=== PATIENT | male | born 1995 | race Caucasian/White ===

== ENCOUNTER 2020-07-03 15:11 | Emergency (ER) | payer BC, SELFPAY ==
--- NOTE | ~2020-07-03 | XR_ITS ---
EXAMINATION: XR foot RT min 3V EXAM DATE: 07/03/2020 15:49 INDICATION: Injury rt great toe top of RT foot. Kicked a cinderblock. Initial encounter. TECHNIQUE: Right foot dorsoplantar, lateral and oblique projections obtained and reviewed. Compariso n is made to prior examination from 03/26/2011. FINDINGS: Right metatarsal bones unremarkable. There are no acute fractures or dislocations identifi ed. There is no subcutaneous gas. The soft tissue is unremarkable. There are no radiopaque foreig n bodies. IMPRESSION: 1. XR foot RT min 3V exam without acute osseous findings. Reviewed, dictated and finalized at location A.
[2020-07-03 15:30] VITALS: BP 162/89; PULSE 106; RESP 16; TEMP 36.3; O2SAT 97
--- NOTE | 2020-07-03 16:03 | ED.GENADULT ---
HPI - General Adult General Chief complaint: Extremity Injury, Lower Stated complaint: right foot injury Time Seen by Provider: 07/03/20 15:41 Source: patient History of Present Illness HPI narrative: Patient is a 25 y/o male complaining of right foot pain since 2 hours ago. He states that he kicked a cinderblock accidentally while working in a garden. He describes his pain as sharp and rates it as 6-7/10. Weight bearing aggravates his pain. Related Data Allergies Allergy/AdvReac Type Severity Reaction Status Date / Time No Known Allergies Allergy Verified 07/03/20 15:35 Review of Systems Constitutional: Constitutional: Denies chills, Denies fever(s), Denies headache(s) and Denies weakness Eyes: Eyes: Denies blurry vision ENT: Denies headache(s) and Denies neck pain Cardiovascular: Cardiovascular: Denies chest pain and Denies dyspnea Respiratory: Respiratory: Denies cough and Denies dyspnea Gastrointestinal: Gastrointestinal: Denies abdominal pain, Denies diarrhea, Denies nausea and Denies vomiting Genitourinary: Genitourinary: Denies hematuria and Denies dysuria Musculoskeletal: Musculoskeletal: Denies back pain, Denies neck pain and Reports other (right foot pain) Neurologic: Denies headache(s) and Denies weakness REPLACED BY [facility] Family History Family History Mother Diabetes mellitus Patient's mother is in good health Social History Social History Smoking status: Never smoker Alcohol intake: never Gender identity (if verbalized by the patient): Male Exam Const: General: no acute distress and well developed Orientation/consciousness: oriented to person, oriented to place, oriented to time and patient oriented x3 HENMT: Head: normocephalic Ears: external ears normal General nose exam: Normal external nose present Eyes: General: appearance normal, both eyes and all related structures Conjunctivae: conjunctivae normal Skin: General skin exam: normal color and turgor normal Neuro: General: oriented to person, oriented to place, oriented to time and patient oriented x3 Cognition (Neuro): normal cognition Extrem: General: normal to inspection, full ROM and no pedal edema Right lower extremity: foot Details: tenderness Psych: Appearance: grossly normal Mental Status: mental status grossly normal Affect: normal affect Course Vital Signs Vital signs: Vital Signs Temperature 36.3 C L 07/03/20 15:30 Pulse Rate 106 H 07/03/20 15:30 Respiratory Rate 16 07/03/20 15:30 Blood Pressure 162/89 H 07/03/20 15:30 Pulse Oximetry 97 07/03/20 15:30 Temperature 36.3 C L 07/03/20 15:30 Pulse Rate 72 07/03/20 16:25 Respiratory Rate 15 07/03/20 16:25 Blood Pressure 118/75 07/03/20 16:25 Pulse Oximetry 100 07/03/20 16:25 Medical Decision Making Vital Signs Vital Signs: Vital Signs Temperature 36.3 C L 07/03/20 15:30 Pulse Rate 106 H 07/03/20 15:30 Respiratory Rate 16 07/03/20 15:30 Blood Pressure 162/89 H 07/03/20 15:30 Pulse Oximetry 97 07/03/20 15:30 Temperature 36.3 C L 07/03/20 15:30 Pulse Rate 72 07/03/20 16:25 Respiratory Rate 15 07/03/20 16:25 Blood Pressure 118/75 07/03/20 16:25 Pulse Oximetry 100 07/03/20 16:25 Discharge Plan Discharge Clinical Impression: Contusion of foot, right Qualifiers: Encounter type: initial encounter Qualified Code(s): S90.31XA - Contusion of right foot, initial encounter Patient Disposition: Home, Self-Care Condition: Stable Instructions: Antibiotic Form, Foot Contusion (ED) Prescriptions: No Action montelukast [Singulair] 10 mg tablet 10 mg PO DAILY Qty: 90 RF: 3 Follow-up/Referrals: Jeremiah Torrez MD [Primary Care Provider] - Stand Alone Forms: Work/School Release IP
--- NOTE | 2020-07-03 16:04 | PC.NURSE ---
Verbal order for post op shoe at this time per edp katheryn.
[2020-07-03 16:25] VITALS: BP 118/75; PULSE 72; RESP 15; O2SAT 100
== END 2020-07-03 16:25 | disposition home or self-care (01) ==
PROVIDERS: Emergency Provider Emergency Medicine; PCP Family Medicine
DX: S90.31XA Contusion of right foot, initial encounter (principal); W22.09XA Striking against other stationary object, initial encounter
CPT/HCPCS: 73630; 99283

== ENCOUNTER 2020-07-11 14:23 | Outpatient (CLI) | payer BC, SELFPAY ==
--- NOTE | ~2020-07-11 | XR_ITS ---
XR ankle RT 2V DATE: 07/11/2020 14:43 INDICATION: Tripped. Right ankle and foot pain. TECHNIQUE: AP and lateral views COMPARISON: None FINDINGS: No fracture or dislocation of the ankle or disruption of the ankle mortise. No periosteal r eaction or bone destruction. IMPRESSION: Negative Reviewed, dictated and finalized at location B. IMPRESSION: Negative
--- NOTE | ~2020-07-11 | XR_ITS ---
XR foot RT min 3V DATE: 07/11/2020 14:43 INDICATION: Right ankle and foot pain following tripping injury TECHNIQUE: 4 views COMPARISON: None FINDINGS: Os tibiale externum. No fracture or dislocation, periosteal reaction or bone destruction. IMPRESSION: No significant abnormality Reviewed, dictated and finalized at location B. IMPRESSION: No significant abnormality
== END 2020-07-11 14:24 | disposition home or self-care (01) ==
LOC: ANHIMG 14:27
PROVIDERS: PCP Family Medicine; Visit Provider Nurse Practitioner Family
DX: M25.571 Pain in right ankle and joints of right foot (principal); M79.671 Pain in right foot
CPT/HCPCS: 73600; 73630

== ENCOUNTER 2021-04-16 12:48 | Outpatient (CLI) | payer BC, SELFPAY ==
[2021-04-16 13:37] LABS: Basophils Absolute Auto 0.1 K/mm3 (0.0-0.1); Basophils Percent Auto 0.8 % (0.2-1.2); Eosinophils Absolute Auto 0.4 K/mm3 (0-0.3); Hematocrit 47.3 % (42.0-52.0); Hemoglobin 15.8 g/dL (14.0-18.0); Immature Granulocyte Absolute 0.01 K/mm3 (0.00-0.031); Immature Granulocyte Percent A 0.2 % (0-0.5); Lymphocytes Absolute Auto 1.71 K/mm3 (0.9-3.2); Lymphocytes Percent Auto 27.8 % (18.3-44.2); Mean Corpuscular HGB Conc 33.4 g/dl (32-36); Mean Corpuscular Volume 86.8 fl (80-100); Mean Platelet Volume 10.7 fl (7.4-10.4); Monocytes Absolute Auto 0.7 K/mm3 (0.1-0.6); Monocytes Percent Auto 10.6 % (2.6-8.5); Neutrophils Absolute Auto 3.4 K/mm3 (1.3-6.7); Neutrophils Percent Auto 54.6 % (45.5-73.1); Platelet Count Result 253 k/mm3 (150-375); Red Blood Count 5.45 M/mm3 (4.6-6.20); Red Cell Distribution Width 12.3 % (11.5-14.5); White Blood Count 6.2 K/mm3 (4.5-10.0)
[2021-04-16 13:49] LABS: Alanine Aminotransferase 28 U/L (4-50); Albumin Level 4.5 g/dL (3.5-5.1); Alkaline Phosphatase 53 U/L (38-126); Anion Gap 5 mmol/L (8-16); Aspartate Amino Transferase 29 U/L (17-59); Bilirubin,Total 0.6 mg/dL (0.2-1.3); Blood Urea Nitrogen 11 mg/dL (9-20); Calcium 9.1 mg/dL (8.4-10.2); Carbon Dioxide 30 mmol/L (22-30); Chloride 104 mmol/L (98-107); Cholesterol 236 mg/dL (0-200); Estimated Glomerular Filt Rate > 60; Glucose 99 mg/dL (65-110); HDL Direct 43 mg/dL; Potassium 4.3 mmol/L (3.4-5.0); Sodium 139 mmol/L (137-145); Triglycerides 173 mg/dL (<150)
[2021-04-16 13:53] LABS: Hemoglobin A1C 5.8 % (<5.7)
[2021-04-16 14:00] LABS: LDL Cholesterol Direct 161 mg/dL
[2021-04-16 14:12] LABS: Add Urine Microscopic? NO; Appearance Urine Clear (Clear); Bilirubin Urine Negative (Negative); Blood Urine Negative (Negative); Color Urine Yellow (Yellow); Glucose Urine UA Negative (Negative); Ketones Urine Negative (Negative); Leukocyte Esterase Ur Negative LEU/UL (NEGATIVE); Nitrate Urine Negative (Negative); Protein Urine Negative (Negative); Specific Grav Ur 1.025 (1.001-1.035); Urobilinogen Urine Negative mg/dL (<2.0)
[2021-04-16 15:11] LABS: Folic Acid 11.6 ng/mL (2.76->20)
== END 2021-04-16 12:49 | disposition home or self-care (01) ==
PROVIDERS: PCP Family Medicine; Visit Provider Nurse Practitioner Family
DX: Z51.81 Encounter for therapeutic drug level monitoring (principal); Z68.41 Body mass index [BMI] 40.0-44.9, adult; Z00.00 Encounter for general adult medical examination without abnormal findings; Z79.899 Other long term (current) drug therapy
CPT/HCPCS: 36415; 80053; 80061; 81003; 82607; 82746; 83036; 84443; 85025

== ENCOUNTER 2022-09-23 09:18 | Outpatient (CLI) | payer BC, SELFPAY ==
[2022-09-23 09:38] LABS: Basophils Percent Auto 0.6 % (0.2-1.2); Eosinophils Absolute Auto 0.3 K/mm3 (0-0.3); Eosinophils Percent Auto 5.4 % (0-4.4); Hematocrit 45.6 % (42.0-52.0); Hemoglobin 15.1 g/dL (14.0-18.0); Immature Granulocyte Absolute 0.01 K/mm3 (0.00-0.031); Immature Granulocyte Percent A 0.2 % (0-0.5); Lymphocytes Absolute Auto 1.39 K/mm3 (0.9-3.2); Lymphocytes Percent Auto 22.2 % (18.3-44.2); Mean Corpuscular HGB Conc 33.1 g/dl (32-36); Mean Corpuscular Hemoglobin 28.3 pg (26-34); Mean Corpuscular Volume 85.6 fl (80-100); Monocytes Absolute Auto 0.7 K/mm3 (0.1-0.6); Monocytes Percent Auto 10.5 % (2.6-8.5); Neutrophils Absolute Auto 3.8 K/mm3 (1.3-6.7); Neutrophils Percent Auto 61.1 % (45.5-73.1); Platelet Count Result 260 k/mm3 (150-375); Red Blood Count 5.33 M/mm3 (4.6-6.20); Red Cell Distribution Width 12.4 % (11.5-14.5); White Blood Count 6.3 K/mm3 (4.5-10.0)
[2022-09-23 09:53] LABS: Alanine Aminotransferase 34 U/L (6-50); Albumin Level 4.4 g/dL (3.5-5.1); Alkaline Phosphatase 52 U/L (38-126); Anion Gap 7 mmol/L (8-16); Aspartate Amino Transferase 30 U/L (17-59); Bilirubin,Total 0.8 mg/dL (0.2-1.3); Blood Urea Nitrogen 13 mg/dL (9-20); Calcium 9.1 mg/dL (8.4-10.2); Carbon Dioxide 30 mmol/L (22-30); Chloride 102 mmol/L (98-107); Cholesterol 258 mg/dL (0-200); Estimated Glomerular Filt Rate > 60; Glucose 115 mg/dL (65-110); HDL Direct 41 mg/dL; Potassium 3.9 mmol/L (3.4-5.0); Sodium 139 mmol/L (137-145); Triglycerides 214 mg/dL (<150)
[2022-09-23 10:05] LABS: LDL Cholesterol Direct 173 mg/dL
== END 2022-09-23 09:19 | disposition home or self-care (01) ==
PROVIDERS: PCP Family Medicine; Visit Provider Family Medicine
DX: G47.33 Obstructive sleep apnea (adult) (pediatric) (principal); E78.2 Mixed hyperlipidemia; R73.01 Impaired fasting glucose
CPT/HCPCS: 36415; 80053; 80061; 83036; 84443; 85025

== ENCOUNTER 2022-11-19 14:23 | Outpatient (CLI) | payer BC, SELFPAY ==
[2022-11-19 15:44] LABS: Appearance Urine Clear (Clear); Bilirubin Urine Negative (Negative); Blood Urine Negative (Negative); Color Urine Yellow (Yellow); Glucose Urine UA 1+ mg/dL (Negative); Ketones Urine Trace mg/dL (Negative); Leukocyte Esterase Ur Negative LEU/UL (NEGATIVE); Nitrate Urine Negative (Negative); Protein Urine Negative (Negative); Specific Grav Ur 1.027 (1.001-1.035); Urobilinogen Urine 0.2 mg/dL (<2.0); pH Urine 6.5 (5.0-9.0)
[2022-11-19 15:54] LABS: Add Urine Microscopic? NO
== END 2022-11-19 14:24 | disposition home or self-care (01) ==
PROVIDERS: PCP Family Medicine; Visit Provider Family Medicine
DX: R73.01 Impaired fasting glucose (principal)
CPT/HCPCS: 81003

== ENCOUNTER 2023-01-24 13:27 | Emergency (ER) | payer BC, SELFPAY ==
[2023-01-24 13:36] VITALS: BP 140/70; PULSE 104; RESP 18; TEMP 36.7; O2SAT 96
[2023-01-24 14:23] VITALS: O2SAT 98
--- NOTE | 2023-01-24 15:22 | ED.URI ---
HPI - URI/Sore Throat General Chief Complaint: Upper Respiratory Infection Stated Complaint: COVID-19 Time Seen by Provider: 01/24/23 14:53 Source: patient, RN notes reviewed and old records reviewed Mode of arrival: ambulatory Limitations: no limitations History of Present Illness HPI Narrative: This is a 27 year old male who presents for evaluation of COVID symptoms. PAtient states he developed symptoms of covid on Thursday. He reports cough and congestion. He reports he tested positive for covid on Thursday. He is here because he has hoarseness and he reports worsening cough. He denies fever, chills, shortness of breath. He feels like there is phlegm in the back of his throat. Related Data Home Medications Medication Instructions Recorded Confirmed loratadine 10 mg disintegrating 10 mg PO DAILY 07/11/20 07/23/22 tablet (Claritin RediTabs) fluticasone propionate 50 1 spray intranasal BID 01/09/21 07/23/22 mcg/actuation nasal spray,suspension (Flonase Allergy Relief) Allergies Allergy/AdvReac Type Severity Reaction Status Date / Time No Known Allergies Allergy Verified 01/24/23 14:25 Review of Systems Constitutional: Constitutional: Denies weakness ENT: Reports nasal congestion Cardiovascular: Cardiovascular: Denies syncope, Denies rapid heart rate, Denies irregular heart rhythm, Denies leg edema and Denies dyspnea Respiratory: Respiratory: Denies chest congestion, Reports cough, Denies hemoptysis, Denies excessive phlegm production and Denies dyspnea Gastrointestinal: Gastrointestinal: Denies abdominal pain, Denies hematochezia, Denies diarrhea and Denies vomiting Genitourinary: Genitourinary: Denies hematuria, Denies dysuria, Denies penile discharge and Denies testicular pain Musculoskeletal: Musculoskeletal: Denies joint swelling, Denies loss of height and Denies muscle weakness Neurologic: Denies syncope, Denies focal weakness and Denies weakness PMFSH Past Medical History Medical History Abnormal fasting glucose (04/16/21) fasting glucose 99 with hemoglobin A1c 5.8 on 04/16/2021. fasting glucose 115 with hemoglobin A1c 6.0 on 10/13/2022. Acute right ankle pain BMI 38.0-38.9,adult Body mass index (BMI) 40.0-44.9, adult (12/06/18) Encounter for wellness examination Glucosuria 1+ glucose in the urine 11/19/2022. Left ankle pain (~2022) pain medial aspect left ankle from work activities. Mixed hyperlipidemia (04/16/21) total cholesterol 236, triglycerides 173, HDL 43, LDL 161 on 04/16/2021. Cholesterol 258, triglycerides 214, HDL 41, LDL 173 on 09/23/2022. Morbid obesity with BMI of 40.0-44.9, adult Nausea and vomiting Obesity (BMI 30-39.9) Right foot pain Skin tag Family History Family History Mother Diabetes mellitus Patient's mother is in good health Social History Social History Smoking status: Never smoker Alcohol intake: never Substance use: never Substance use type: does not use Current Housing: Decline to Answer Concerned About Future Housing: Decline to Answer Difficulty Paying Gas/Electric Bills: Decline to Answer Difficulty Paying for Meds: Decline to Answer Currently Unemployed: Decline to Answer Education: Decline to Answer Difficulty w/ Childcare or Family Care: Decline to Answer Gender identity (if verbalized by the patient): Male Exam Const: General: no acute distress and alert Nutritional Appearance: well nourished Orientation/consciousness: patient oriented x3 HENMT: Head: normal to inspection Ears: external ears normal and TM's normal bilaterally Face and sinus: normal facial exam Mouth: Yes Normal oral and palatal mucosa present, Yes lip normal and Yes moist mucous membranes Throat: posterior oropharynx normal and uvula midline Eyes: EOM: EOMs intact bilaterally
[2023-01-24 15:35] VITALS: RESP 16
== END 2023-01-24 15:35 | disposition home or self-care (01) ==
PROVIDERS: Emergency Provider General Practice; PCP Family Medicine
DX: U07.1 COVID-19 (principal); J04.0 Acute laryngitis; E78.2 Mixed hyperlipidemia; E66.01 Morbid (severe) obesity due to excess calories; Z68.41 Body mass index [BMI] 40.0-44.9, adult
CPT/HCPCS: 99283

== ENCOUNTER 2023-06-03 12:29 | Emergency (ER) | payer BC, SELFPAY ==
[2023-06-03] VITALS (23 sets, daily range): BP systolic 142–157; BP diastolic 74–99; PULSE 83–106; RESP 11–24; TEMP 36.2; O2SAT 90–98
--- NOTE | 2023-06-03 12:32 | ED.NAVMDI ---
HPI - Nausea/Vomiting/Diarrhea General Chief complaint: Nausea/Vomiting/Diarrhea Stated complaint: N/V/IRVIN Time Seen by Provider: 06/03/23 12:32 Source: patient Mode of arrival: ambulatory Limitations: no limitations History of Present Illness HPI Narrative: Rob is a 27-year-old male patient presenting to the emergency room today with complaints of nausea, vomiting, and headache. Reports that his symptoms started at 0800 this morning. She is very pale upon evaluation. Denies any abdominal pain. Last bowel movement was yesterday and normal for the patient. Related Data Home Medications Medication Instructions Recorded Confirmed loratadine 10 mg disintegrating 10 mg PO DAILY 07/11/20 07/23/22 tablet (Claritin RediTabs) fluticasone propionate 50 1 spray intranasal BID 01/09/21 07/23/22 mcg/actuation nasal spray,suspension (Flonase Allergy Relief) Allergies Allergy/AdvReac Type Severity Reaction Status Date / Time No Known Allergies Allergy Verified 06/03/23 13:16 Review of Systems Review of Systems: Pertinent positives per HPI. Patient denies any fever, chills, rash, visual changes, dizziness, cough, runny nose, sore throat, shortness of breath, chest pain, palpitations,diarrhea, constipation, abdominal pain, or any urinary issues. [facility] Past Medical History Medical History Abnormal fasting glucose (04/16/21) fasting glucose 99 with hemoglobin A1c 5.8 on 04/16/2021. fasting glucose 115 with hemoglobin A1c 6.0 on 10/13/2022. Acute right ankle pain BMI 38.0-38.9,adult Body mass index (BMI) 40.0-44.9, adult (12/06/18) Encounter for wellness examination Glucosuria 1+ glucose in the urine 11/19/2022. Left ankle pain (~2022) pain medial aspect left ankle from work activities. Mixed hyperlipidemia (04/16/21) total cholesterol 236, triglycerides 173, HDL 43, LDL 161 on 04/16/2021. Cholesterol 258, triglycerides 214, HDL 41, LDL 173 on 09/23/2022. Morbid obesity with BMI of 40.0-44.9, adult Nausea and vomiting Obesity (BMI 30-39.9) Right foot pain Skin tag Family History Family History Mother Diabetes mellitus Patient's mother is in good health Social History Social History Smoking status: Never smoker Alcohol intake: never Substance use: never Substance use type: does not use Current Housing: Decline to Answer Concerned About Future Housing: Decline to Answer Difficulty Paying Gas/Electric Bills: Decline to Answer Difficulty Paying for Meds: Decline to Answer Currently Unemployed: Decline to Answer Education: Decline to Answer Difficulty w/ Childcare or Family Care: Decline to Answer Gender identity (if verbalized by the patient): Male Comments At the time of my signature, I reviewed and agree with the nursing past medical, surgical, social, and family history. There is no relevant family history pertinent to the patient complaint. Exam Narrative: General: Well-developed, well nourished, pale and diaphoretic Head: Normocephalic, atraumatic. Cardio: Regular rate and rhythm, s1 and s2 normal, no murmur appreciated. Resp: Clear to auscultation bilaterally, no rhonchi, rales, wheezing or rubs. Abdomen: Soft, pliable, bowel sounds present in all quadrants, non-tender to palpation, no organomegly, no CVAT tenderness. Course Course Emergency Course: Portions of this record may have been created with voice recognition software. Vital Signs Vital signs: Vital Signs Temperature 36.2 C L 06/03/23 12:36 Pulse Rate 83 06/03/23 12:36 Respiratory Rate 18 06/03/23 12:36 Blood Pressure 142/97 H 06/03/23 12:36 Pulse Oximetry 98 06/03/23 12:36 Oxygen Delivery Room Air 06/03/23 12:36 Temperature 36.2 C L 06/03/23 12:36 Pulse Rate 93 06/03/23 13:17 Respirator
[2023-06-03] MEDS: SODIUM CHLORIDE 0.9% IV 1,000 ML 999 ML IV CONT ×2 (12:46→14:24)
[2023-06-03] MEDS: ONDANSETRON INJ 4 MG/2 ML VIAL IV PUSH (12:47)
[2023-06-03 13:25] LABS: Basophils Percent Auto 0.3 % (0.2-1.2); Eosinophils Percent Auto 0.2 % (0-4.4); Hemoglobin 15.3 g/dL (14.0-18.0); Immature Granulocyte Absolute 0.05 K/mm3 (0.00-0.031); Immature Granulocyte Percent A 0.4 % (0-0.5); Lymphocytes Absolute Auto 0.77 K/mm3 (0.9-3.2); Lymphocytes Percent Auto 6.3 % (18.3-44.2); Mean Corpuscular HGB Conc 32.6 g/dl (32-36); Mean Corpuscular Hemoglobin 28.3 pg (26-34); Mean Corpuscular Volume 86.9 fl (80-100); Mean Platelet Volume 10.5 fl (7.4-10.4); Monocytes Absolute Auto 0.4 K/mm3 (0.1-0.6); Monocytes Percent Auto 3.1 % (2.6-8.5); Neutrophils Absolute Auto 10.9 K/mm3 (1.3-6.7); Neutrophils Percent Auto 89.7 % (45.5-73.1); Platelet Count Result 242 k/mm3 (150-375); Red Blood Count 5.41 M/mm3 (4.6-6.20); Red Cell Distribution Width 12.7 % (11.5-14.5); White Blood Count 12.2 K/mm3 (4.5-10.0)
[2023-06-03 13:41] LABS: Alanine Aminotransferase 30 U/L (6-50); Albumin Level 4.5 g/dL (3.5-5.1); Alkaline Phosphatase 60 U/L (38-126); Anion Gap 8 mmol/L (4-12); Aspartate Amino Transferase 27 U/L (17-59); Bilirubin,Total 0.4 mg/dL (0.2-1.3); Blood Urea Nitrogen 12 mg/dL (9-20); Calcium 9.1 mg/dL (8.4-10.2); Carbon Dioxide 27 mmol/L (22-30); Chloride 105 mmol/L (98-107); Estimated CRCL calculation 177 ml/min; Estimated Glomerular Filt Rate > 60; Glucose 191 mg/dL (65-110); Lipase 107 U/L (23-300); Potassium 3.7 mmol/L (3.4-5.0); Sodium 140 mmol/L (137-145)
[2023-06-03 14:03] LABS: Influenza A QL RT-PCR Negative (Negative); Influenza B QL RT-PCR Negative (Negative); RSV RNA, RT-PCR Negative (Negative); SARS-CoV-2 RNA PCR Negative (Negative)
[2023-06-03 14:25] LABS: Appearance Urine Turbid (Clear); Bacteria Urine None Seen /hpf; Bilirubin Urine Negative (Negative); Blood Urine Negative (Negative); Color Urine Yellow (Yellow); Glucose Urine UA Trace mg/dL (Negative); Ketones Urine Negative (Negative); Leukocyte Esterase Ur Negative LEU/UL (Negative); Nitrate Urine Negative (Negative); Non Pathogenic Casts 0-2; Protein Urine Trace mg/dL (Negative); RBC Urine 0-2 /hpf (0-2); Specific Grav Ur 1.023 (1.001-1.035); Squamous Epithelial Cell Urine None Seen /hpf (Few); Urobilinogen Urine 0.2 mg/dL (<2.0); WBC Urine 0-5 /hpf (0-3)
[2023-06-03 14:27] LABS: Add Urine Microscopic? YES
[2023-06-03] MEDS: ACETAMINOPHEN 500 MG TABLET 1000 MG PO (14:46)
== END 2023-06-03 16:16 | disposition home or self-care (01) ==
PROVIDERS: Emergency Provider Nurse Practitioner Family; PCP Family Medicine
DX: R11.2 Nausea with vomiting, unspecified (principal); Z20.822 Contact with and (suspected) exposure to COVID-19; E78.2 Mixed hyperlipidemia; E66.01 Morbid (severe) obesity due to excess calories; Z68.41 Body mass index [BMI] 40.0-44.9, adult
CPT/HCPCS: 36415; 80053; 81001; 83690; 85025; 87637; 96361; 96374; 99284; A9270; J2405; J7030

== ENCOUNTER 2023-12-08 15:01 | Emergency (ER) | payer BC, SELFPAY ==
[2023-12-08 15:08] VITALS: BP 150/108; PULSE 93; RESP 18; TEMP 36.6; O2SAT 97
[2023-12-08 15:59] LABS: Basophils Percent Auto 0.4 % (0.2-1.2); Eosinophils Percent Auto 0.2 % (0-4.4); Hematocrit 46.6 % (42.0-52.0); Hemoglobin 15.5 g/dL (14.0-18.0); Immature Granulocyte Absolute 0.03 K/mm3 (0.00-0.031); Immature Granulocyte Percent A 0.3 % (0-0.5); Lymphocytes Absolute Auto 0.61 K/mm3 (0.9-3.2); Lymphocytes Percent Auto 5.4 % (18.3-44.2); Mean Corpuscular HGB Conc 33.3 g/dl (32-36); Mean Corpuscular Hemoglobin 29.1 pg (26-34); Mean Corpuscular Volume 87.4 fl (80-100); Mean Platelet Volume 10.3 fl (7.4-10.4); Monocytes Absolute Auto 0.3 K/mm3 (0.1-0.6); Monocytes Percent Auto 2.7 % (2.6-8.5); Neutrophils Absolute Auto 10.3 K/mm3 (1.3-6.7); Platelet Count Result 254 k/mm3 (150-375); Red Blood Count 5.33 M/mm3 (4.6-6.20); Red Cell Distribution Width 12.6 % (11.5-14.5); White Blood Count 11.3 K/mm3 (4.5-10.0)
[2023-12-08 16:07] LABS: Add Urine Microscopic? YES; Appearance Urine Cloudy (Clear); Bacteria Urine None Seen /hpf; Bilirubin Urine Negative (Negative); Blood Urine Negative (Negative); Color Urine Yellow (Yellow); Glucose Urine UA Negative (Negative); Ketones Urine Negative (Negative); Leukocyte Esterase Ur Negative LEU/UL (Negative); Nitrate Urine Negative (Negative); Non Pathogenic Casts 0-2; Protein Urine 1+ mg/dL (Negative); RBC Urine 0-2 /hpf (0-2); Specific Grav Ur 1.025 (1.001-1.035); Squamous Epithelial Cell Urine None Seen /hpf (Few); Urobilinogen Urine 0.2 mg/dL (<2.0); WBC Urine 0-5 /hpf (0-3)
[2023-12-08 16:09] LABS: Alanine Aminotransferase 36 U/L (6-50); Albumin Level 4.8 g/dL (3.5-5.1); Alkaline Phosphatase 68 U/L (38-126); Anion Gap 8 mmol/L (4-12); Aspartate Amino Transferase 31 U/L (17-59); Bilirubin,Total 0.7 mg/dL (0.2-1.3); Blood Urea Nitrogen 12 mg/dL (9-20); Calcium 9.8 mg/dL (8.4-10.2); Carbon Dioxide 31 mmol/L (22-30); Chloride 101 mmol/L (98-107); Estimated CRCL calculation 152 ml/min; Estimated Glomerular Filt Rate > 60; Glucose 180 mg/dL (65-110); Lipase 87 U/L (23-300); Potassium 4.1 mmol/L (3.4-5.0); Sodium 140 mmol/L (137-145)
[2023-12-08 16:28] VITALS: BP 142/95; PULSE 96; RESP 19; O2SAT 98
[2023-12-08] MEDS: SODIUM CHLORIDE 0.9% IV 1,000 ML 999 ML IV CONT (16:28)
[2023-12-08] MEDS: ONDANSETRON INJ 4 MG/2 ML VIAL IV PUSH (16:28)
--- NOTE | 2023-12-08 17:41 | ED.GENADULT ---
HPI - General Adult General Chief complaint: Nausea/Vomiting/Diarrhea Stated complaint: N/V SINCE 0900 Time Seen by Provider: 12/08/23 16:05 Source: patient Mode of arrival: ambulatory Limitations: no limitations History of Present Illness HPI narrative: 28-year-old otherwise healthy here with a complaint of vomiting since this morning. Patient states that he threw up several times. Denies any fever or chills. No history of any abdominal pain, diarrhea. He feels dehydrated Onset (ago): day(s) (1) Relieving factors: none Exacerbating factors: none Related Data Home Medications Medication Instructions Recorded Confirmed loratadine 10 mg disintegrating 10 mg PO DAILY 07/11/20 07/23/22 tablet (Claritin RediTabs) fluticasone propionate 50 1 spray intranasal BID 01/09/21 07/23/22 mcg/actuation nasal spray,suspension (Flonase Allergy Relief) Allergies Allergy/AdvReac Type Severity Reaction Status Date / Time No Known Allergies Allergy Verified 06/03/23 13:16 Review of Systems Review of Systems: All systems reviewed & are unremarkable except as noted in HPI and below Constitutional: Constitutional: Reports no additional constitutional complaints Eyes: Eyes: Reports no additional eye complaints ENT: Reports system reviewed and no additional complaints, except as documented Cardiovascular: Cardiovascular: Reports no additional cardiovascular complaints Respiratory: Respiratory: Reports no additional respiratory complaints Gastrointestinal: Gastrointestinal: Reports as per HPI Musculoskeletal: Musculoskeletal: Reports no additional musculoskeletal complaints Integumentary/Breasts: Skin/Breast: Reports system reviewed and no additional complaints, except as docu [facility] Past Medical History Medical History Abnormal fasting glucose (04/16/21) fasting glucose 99 with hemoglobin A1c 5.8 on 04/16/2021. fasting glucose 115 with hemoglobin A1c 6.0 on 10/13/2022. Acute right ankle pain BMI 38.0-38.9,adult Body mass index (BMI) 40.0-44.9, adult (12/06/18) Encounter for wellness examination Glucosuria 1+ glucose in the urine 11/19/2022. Left ankle pain (~2022) pain medial aspect left ankle from work activities. Mixed hyperlipidemia (04/16/21) total cholesterol 236, triglycerides 173, HDL 43, LDL 161 on 04/16/2021. Cholesterol 258, triglycerides 214, HDL 41, LDL 173 on 09/23/2022. Morbid obesity with BMI of 40.0-44.9, adult Nausea and vomiting Obesity (BMI 30-39.9) Right foot pain Skin tag Family History Family History Mother Diabetes mellitus Patient's mother is in good health Social History Social History Smoking status: Never smoker Alcohol intake: never Substance use: never Substance use type: does not use Current Housing: Decline to Answer Concerned About Future Housing: Decline to Answer Difficulty Paying Gas/Electric Bills: Decline to Answer Difficulty Paying for Meds: Decline to Answer Currently Unemployed: Decline to Answer Education: Decline to Answer Difficulty w/ Childcare or Family Care: Decline to Answer Gender identity (if verbalized by the patient): Male Exam Narrative: GENERAL: Well-appearing, well-nourished, and in no acute distress. HEAD: Normocephalic, atraumatic. EYES: PERRLA and EOMI. ENT: Nares clear, no rhinorrhea or epistaxis. NECK: Supple. CHEST: Clear to auscultation. No respiratory distress. HEART: Regular rate and rhythm. No murmur heard. Normal peripheral pulses. ABDOMEN: Soft, nontender. EXTREMITIES: Normal range of motion. No edema. SKIN: Warm, dry, no rash. NEURO: No focal deficits. Alert and oriented x3. PSYCH: Normal mood and affect. Course Course Emergency Course: Patient had no further episodes of nausea a while was here in the ER. Informed him about his la
[2023-12-08 17:59] VITALS: BP 120/91; PULSE 94; RESP 16; O2SAT 95
== END 2023-12-08 18:00 | disposition home or self-care (01) ==
PROVIDERS: Registered Nurse; Emergency Provider Family Medicine; PCP Family Medicine
DX: R11.11 Vomiting without nausea (principal)
CPT/HCPCS: 36415; 80053; 81001; 83690; 85025; 96361; 96374; 99284; J2405; J7030

== ENCOUNTER 2024-10-08 09:00 | Emergency (ER) | payer OTHER, BC, SELFPAY ==
--- NOTE | ~2024-10-08 | XR_ITS ---
XR foot RT min 3V 10/08/2024 09:31 Indication: Right foot pain after trauma Procedure: 4 views right foot Comparison: 07/11/2020 Findings: No fracture, subluxation or dislocation. No soft tissue abnormality. No foreign bodies. Impression: 1: No acute bone or joint abnormality. Reviewed, dictated and finalized at location A. Impression: 1: No acute bone or joint abnormality.
[2024-10-08 08:59] VITALS: BP 173/86; PULSE 79; RESP 16; TEMP 36.6; O2SAT 95
--- OUTSIDE RECORDS SUMMARY | 2024-10-08 09:44 | XMS_ITS | Clinical Summary ---
Author Organization [facility] Address [address] [place] [address] Care Team Providers Care Ballroom Dancer Name Role Phone Pérez Garza MD Primary Care Provider [phone] Source Comments [facility],non-owned Affiliates and Associated Physician Practices is amultiple site organization consisting of ambulatory clinics and hospital sitesin [place], [place], [place] and [place]. This disclosure is being madepursuant to the Care Everywhere program and may not contain all information available regarding this patient. Last updated 17.[facility] Allergies No known active allergies Medications * Be aware that medications may not be up to date on this document. Alwaysverify current medications with the patient. Loratadine (CLARITIN PO) Active Fluticasone Propionate (FLONASE NA) Active DiphenhydrAMINE HCl (BENADRYL ALLERGY PO) Active Immunizations Immunization Administration Dates Next Due FLU VACCINE QUAD IIV4 PF ID 01/16/2016 INFLUENZA VACCINE, QUADR. (F LUZONE; FLULAVAL; FLUARIX; AFLURIA QUADRIVALENT; 6MO+), 0.5 ML (IIV4) 12/23/2018,12/19/2017,12/12/2016 Social History Tobacco Use Types Packs/Day Years Used Date Smoking Tobacco: Never Smokeless Tobacco: Never Sex and Gender Information Value Date Recorded Sex Assigned at Not on file Legal Sex Male 1:59 PM [employer] Gender Identity Not on file Sexual Orientation Not on file Last Filed Vital Signs Vital Sign Reading Time Taken Comments Blood Pressure 112/78 02/26/2018 4:54 PM [employer] Pulse 113 02/26/2018 4:54 PM [employer] Temperature 36.8 C (98.2 F) 02/26/2018 4:54 PM [employer] Respiratory Rate 17 02/26/2018 4:54 PM [employer] Oxygen Saturation 97% 02/26/2018 4:54 PM [employer] Inhaled Oxygen Concentration - - Weight 108.9 kg (240 lb) 02/26/2018 4:54 PM [employer] COUN[employer] Height 175.3 cm (5' 9) 02/26/2018 4:54 PM [employer] COUN[employer] Body Mass Index 35.44 02/26/2018 4:54 PM [employer]ION COUNSEL[employer] Plan of Treatment Health Maintenance Due Date Last Done Comments HIV SCREENING 2008 HEPATITIS C SCREENING 06/02/2011 DTAP/TDAP/TD VACCINES (1 - Tdap) 2012 HEPATITIS B VACCINE (1 of 3 - 19+ 3-dose series) 2012 HPV VACCINE (1 - 3-dose SCDM series) 2020 COVID-19 VACCINE ( - season) 2023 DEPRESSION SCREENING 02/24/2024 INFLUENZA VACCINE (#1) 2024 9, 12/19/2017, 12/12/2016, Additional history exists ZOSTER VACCINE (1 of 2) 06/07/2043 HIB VACCINE Aged Out No longer eligi ble based on patient's age to complete this topic MENINGOCOCCAL (Group B) VACCINE SHARED DECISION-MAKING Aged Out No longer eligible based on patient's age to complete this topic MENINGOCOCCAL GROUPS A/C/Y/W VACCINE Aged Out No longer eligible based on patient's age to complete this topic PNEUMOCOCCAL VACCINE Aged Out No long er eligible based on patient's age to complete this topic Insurance [place] Care Teams Ballroom Dancer Relationship Specialty Start Date End Date Pérez Garza MD [id number] [place] [address] PCP - General Family Medicine 12/12/16
--- NOTE | 2024-10-08 10:37 | ED.LOWEXIN ---
HPI - Extremity Injury (Lower) General Chief Complaint: Extremity Injury, Lower Stated Complaint: R foot injury Time Seen by Provider: 10/08/24 09:05 Source: patient Mode of arrival: EMS Limitations: no limitations History of Present Illness HPI Narrative: 29-year-old otherwise healthy was brought in by EMS from [facility] with a complains of right foot pain. Patient states that heavy box fell on his foot. He does wear steel-toed boot . complaint: foot injury Onset (ago): hour(s) (1) Type of Injury: blunt Place: work Severity: moderate Exacerbating factors: nothing Context: direct blow Other symptoms: none Related Data Home Medications ?Medication ?Instructions ?Recorded ?Confirmed ?Last Taken ?Type loratadine 10 mg disintegrating 10 mg PO DAILY 07/11/20 07/23/22 Unknown History tablet (Claritin RediTabs) fluticasone propionate 50 1 spray intranasal BID 01/09/21 07/23/22 Unknown History mcg/actuation nasal spray,suspension (Flonase Allergy Relief) Allergies Allergy/AdvReac Type Severity Reaction Status Date / Time No Known Allergies Allergy Verified 10/08/24 09:03 [facility] Past Medical History Medical History Glucosuria 1+ glucose in the urine 11/19/2022. Left ankle pain (~2022) pain medial aspect left ankle from work activities. Morbid obesity with BMI of 40.0-44.9, adult Abnormal fasting glucose (04/16/21) fasting glucose 99 with hemoglobin A1c 5.8 on 04/16/2021. fasting glucose 115 with hemoglobin A1c 6.0 on 10/13/2022. Mixed hyperlipidemia (04/16/21) total cholesterol 236, triglycerides 173, HDL 43, LDL 161 on 04/16/2021. Cholesterol 258, triglycerides 214, HDL 41, LDL 173 on 09/23/2022. Obesity (BMI 30-39.9) Encounter for wellness examination Skin tag BMI 38.0-38.9,adult Nausea and vomiting Acute right ankle pain Right foot pain Body mass index (BMI) 40.0-44.9, adult (12/06/18) Family History Family History Mother Diabetes mellitus Patient's mother is in good health Social History Social History Smoking status: Never smoker Alcohol intake: never Substance use: never Substance use type: does not use Current Housing: Decline to Answer Concerned About Future Housing: Decline to Answer Difficulty Paying Gas/Electric Bills: Decline to Answer Difficulty Paying for Meds: Decline to Answer Currently Unemployed: Decline to Answer Education: Decline to Answer Difficulty w/ Childcare or Family Care: Decline to Answer Gender identity (if verbalized by the patient): Male Exam Narrative: GENERAL: Well-appearing, well-nourished, and in no acute distress. HEAD: Normocephalic, atraumatic. EYES: PERRLA and EOMI. ENT: Nares clear, no rhinorrhea or epistaxis. Mucous membranes moist. NECK: Supple. CHEST: Clear to auscultation. No respiratory distress. HEART: Regular rate and rhythm. No murmur heard. Normal peripheral pulses. EXTREMITIES: Normal range of motion. No edema. Examination of the right foot shows a small soft tissue swelling on the dorsum of the foot . No open wounds. SKIN: Warm, dry, no rash. NEURO: No focal deficits. Alert and oriented x3. PSYCH: Normal mood and affect. Course Vital Signs Vital signs: Vital Signs Temperature 36.6 C 10/08/24 08:59 Pulse Rate 79 10/08/24 08:59 Respiratory Rate 16 10/08/24 08:59 Blood Pressure 173/86 H 10/08/24 08:59 Pulse Oximetry 95 10/08/24 08:59 Oxygen Delivery Room Air 10/08/24 08:59 Temperature 36.6 C 10/08/24 08:59 Pulse Rate 79 10/08/24 08:59 Respiratory Rate 16 10/08/24 08:59 Blood Pressure 173/86 H 10/08/24 08:59 Pulse Oximetry 95 10/08/24 08:59 Oxygen Delivery Room Air 10/08/24 08:59 MDM - Extremity Injury (Lower) Differential Diagnosis Differential diagnosis: Likely fracture of toe and other (fracture foot) Imaging Data Radiologist's impression: ITS Impressions Foot X-Ray 10/08/24 09:33 Impression: 1: No acute bone or joint abnormality. Discharge Plan Discharge Clinical Impression: Contusion of foot, right Qualifiers: Encounter type: initial encounter Qualified Code(s): S90.31XA - Contusion of right foot, initial encounter Patient Disposition: Home Condition: Stable Instructions: Foot Contusion (ED) Patient Language: Cymro Prescriptions: New ibuprofen 600 mg tablet 600 mg PO TID PRN (Reason: pain) Qty: 20 0RF No Action montelukast [Singulair] 10 mg tablet 10 mg PO DAILY Qty: 90 3RF loratadine [Claritin RediTabs] 10 mg tablet,disintegrating 10 mg PO DAILY fluticasone propionate [Flonase Allergy Relief] 50 mcg/actuation spray,suspension 1 spray intranasal BID Rx Instructions: administer into each nostril ondansetron 4 mg tablet,disintegrating 4 mg PO Q6-8H PRN (Reason: nausea and vomiting) Qty: 14 0RF benzonatate 200 mg capsule 200 mg PO TID PRN (Reason: cough) Qty: 14 0RF methylprednisolone [Medrol (Miguel)] 4 mg tablets,dose pack See Rx Instructions .ROUTE .COMPLEX Qty: 21 0RF Rx Instructions: orally per package directions ondansetron 4 mg tablet,disintegrating 4 mg PO Q6H PRN (Reason: nausea and vomiting) 3 Days Qty: 12 0RF Follow-up/Referrals: Kayla,Pérez Lugo MD [Primary Care Provider] - Time of Disposition: 10:39
== END 2024-10-08 10:51 | disposition home or self-care (01) ==
PROVIDERS: Emergency Provider Family Medicine; PCP Family Medicine
DX: S90.31XA Contusion of right foot, initial encounter (principal); E66.01 Morbid (severe) obesity due to excess calories; E78.2 Mixed hyperlipidemia; W20.8XXA Other cause of strike by thrown, projected or falling object, initial encounter; Z68.41 Body mass index [BMI] 40.0-44.9, adult
CPT/HCPCS: 73630; 99283